=== PATIENT | male | born 1955 | race Caucasian/White ===

== ENCOUNTER → 2023-09-12 14:28 | Outpatient (REF) | payer MEDICARE, SELFPAY | LOC: RAD 14:28 | PROVIDERS: ATTENDING PHYSICIAN Emergency Medicine | DX: Z87.891 Personal history of nicotine dependence (principal) | CPT/HCPCS: 71271 ==

== ENCOUNTER → 2023-11-02 09:38 | Outpatient (REF) | payer MEDICARE, SELFPAY | LOC: RAD 09:38 | PROVIDERS: ATTENDING PHYSICIAN Emergency Medicine | DX: Z87.891 Personal history of nicotine dependence (principal) | CPT/HCPCS: 76770 ==

== ENCOUNTER → 2024-11-17 10:49 | Outpatient (REF) | payer MEDICARE, SELFPAY | LOC: HWRAD 10:49 | PROVIDERS: ATTENDING PHYSICIAN Emergency Medicine | DX: Z87.891 Personal history of nicotine dependence (principal) | CPT/HCPCS: 71271 ==